=== PATIENT | female | born 1965 | race Asian ===

== ENCOUNTER 2017-05-19 10:58 | Outpatient (CLI) | payer OTHER ==
[~2017-05-19 10:58] MED LIST: RISP1TAB PO; SERT100T PO; TRAZ100T OR
== END 2017-05-19 19:23 | disposition home or self-care (01) ==
LOC: RAD 10:58
DX: R13.11 Dysphagia, oral phase (principal)

== ENCOUNTER 2017-12-06 08:48 | Outpatient (CLI) | payer OTHER | END 2017-12-06 21:42 | disposition home or self-care (01) | LOC: MAMMO 08:48 | DX: Z12.31 Encounter for screening mammogram for malignant neoplasm of breast (principal) ==

== ENCOUNTER 2018-01-17 08:53 | Outpatient (CLI) | payer OTHER | END 2018-01-17 22:34 | disposition home or self-care (01) | LOC: LABW 08:53 | DX: K64.0 First degree hemorrhoids (principal) | CPT/HCPCS: 82272 ==

== ENCOUNTER 2019-01-24 16:00 | Outpatient (CLI) | payer OTHER | END 2019-01-24 23:38 | disposition home or self-care (01) | LOC: LABW 16:00 | DX: K64.0 First degree hemorrhoids (principal) | CPT/HCPCS: 82272 ==

== ENCOUNTER 2019-05-13 08:06 | Day surgery (SDC) | payer OTHER ==
[2019-05-13 08:54] LABS: PLATELET COUNT 269 K/uL (152-353)
== END 2019-05-13 13:58 | disposition home or self-care (01) ==
LOC: OR 08:06
PROVIDERS: Student in an Organized Health Care Education/Training Program
PROC: 0HB6XZZ Excision of Back Skin, External Approach (ICD-10-PCS; principal; 2019-05-13)
PROC: 0HB5XZZ Excision of Chest Skin, External Approach (ICD-10-PCS; 2019-05-13)
DX: L90.5 Scar conditions and fibrosis of skin (principal); L91.0 Hypertrophic scar; I10 Essential (primary) hypertension; L92.8 Other granulomatous disorders of the skin and subcutaneous tissue
CPT/HCPCS: 80053; 85027; J0132; J0330; J0690; J1100; J2001; J2250; J2405; J2704; J2710; J2765; J3010; J3301; J3490

== ENCOUNTER 2019-08-19 22:40 | Emergency (ER) | payer OTHER ==
[~2019-08-19] VITALS: Ht 160 cm; Wt 90.7 kg
[2019-08-19 23:22] LABS: PLATELET COUNT 282 K/uL (152-353)
[2019-08-19 23:34] LABS: POTASSIUM 4.8 mmol/L (3.6-5.2); SODIUM 136 mmol/L (136-145)
[2019-08-19 23:55] LABS: PARTIAL THROMBOPLASTIN TIME 27.2 SECONDS (24.5-33.6)
[2019-08-20 00:25] VITALS: BP 149/78; TEMP 98.5
== END 2019-08-20 00:30 | disposition home or self-care (01) ==
LOC: ED 22:40
PROVIDERS: Hospitalist
DX: J45.901 Unspecified asthma with (acute) exacerbation (principal); J40 Bronchitis, not specified as acute or chronic
CPT/HCPCS: 36415; 80053; 82550; 82553; 83880; 84484; 85027; 85610; 85730; 93005; 94664; 96374; 99284; J2930

== ENCOUNTER 2020-09-09 09:25 | Outpatient (CLI) | payer OTHER | END 2020-09-09 19:52 | disposition home or self-care (01) | LOC: INF 09:25 | PROVIDERS: ATTEND Internal Medicine | DX: Z23 Encounter for immunization (principal) | CPT/HCPCS: 96372 ==

== ENCOUNTER 2020-09-29 14:44 | Outpatient (CLI) | payer OTHER | END 2020-09-29 21:33 | disposition home or self-care (01) | LOC: INF 14:44 | PROVIDERS: ATTEND Internal Medicine | DX: Z23 Encounter for immunization (principal) | CPT/HCPCS: 96372 ==

== ENCOUNTER 2020-10-29 03:20 | Emergency (ER) | payer OTHER ==
[~2020-10-29] VITALS: Ht 160 cm; Wt 90.7 kg
[2020-10-29 04:54] LABS: PLATELET COUNT 361 K/uL (152-353)
[2020-10-29 07:23] LABS: POTASSIUM 2.4 mmol/L (3.6-5.2)
[2020-10-29 08:35] VITALS: BP 145/88; TEMP 98.2
== END 2020-10-29 08:38 | disposition home or self-care (01) ==
LOC: ED 03:20
PROVIDERS: Family Medicine
DX: K21.9 Gastro-esophageal reflux disease without esophagitis (principal); E86.0 Dehydration; R10.13 Epigastric pain; Z03.818 Encounter for observation for suspected exposure to other biological agents ruled out
CPT/HCPCS: 36415; 80053; 81000; 82150; 83690; 85007; 85027; 87086; 87088; 87635; 96360; 96361; 96374; 99284; J2405; U0003

== ENCOUNTER 2020-11-01 15:37 | Inpatient (IN) | payer OTHER ==
[~2020-11-01] VITALS: Ht 157.5 cm; Wt 97.2 kg
[2020-11-01] VITALS (10 sets, daily range): BP systolic 62–94; BP diastolic 27–53; TEMP 97.6
[2020-11-01] MEDS ORDERED: LISITAB PO (15:56)
[2020-11-01] MEDS ORDERED: HYDROCHLOROT12.5 M1 PO (16:02)
[2020-11-01] MEDS ORDERED: DITROPAN XL10 MG PO (16:04)
[2020-11-01] MEDS ORDERED: POT CHLORIDE10 MEQ PO (16:04)
[2020-11-01] MEDS ORDERED: CLARITIN10 M1 PO (16:04)
[2020-11-01] MEDS ORDERED: LEVO0.1224 PO (16:05)
[2020-11-01 16:31] LABS: PLATELET COUNT 345 K/uL (152-353)
[2020-11-01 16:53] LABS: POTASSIUM 2.2 mmol/L (3.6-5.2)
[2020-11-02 00:11] VITALS: BP 82/38; TEMP 97.6
[2020-11-02] MEDS ORDERED: OMEPRAZOLE40 MG PO (01:47)
[2020-11-02 04:00] VITALS: BP 73/34; TEMP 97.5
[2020-11-02 05:06] VITALS: BP 76/40; TEMP 97.6; Ht 157.5 cm; Wt 97.2 kg
[2020-11-02 07:02] LABS: PLATELET COUNT 234 K/uL (152-353)
[2020-11-02 08:00] VITALS: BP 76/41; TEMP 97.7
[2020-11-02 08:19] LABS: POTASSIUM 2.8 mmol/L (3.6-5.2)
[2020-11-02] MEDS ORDERED: FLUTMIS14 INH (11:37)
[2020-11-02] MEDS ORDERED: ONDA4TAB3 PO (11:38)
== END 2020-11-02 16:40 | disposition short-term general hospital (02) | DRG 683 ==
LOC: ED 15:38 → MED/SURG 17:12
PROVIDERS: ADMIT Hospitalist; ATTEND Internal Medicine
DX: N17.8 Other acute kidney failure (principal); E87.1 Hypo-osmolality and hyponatremia; E86.0 Dehydration; I10 Essential (primary) hypertension; E03.8 Other specified hypothyroidism; E87.6 Hypokalemia; R19.7 Diarrhea, unspecified; I95.89 Other hypotension; K21.9 Gastro-esophageal reflux disease without esophagitis
CPT/HCPCS: 36415; 51702; 80053; 80320; 81000; 82150; 82272; 83690; 83735; 85007; 85027; 87015; 87045; 87088; 87324; 87328; 87329; 87449; 87635; 87899; 93005; 94664; 94760; 96360; 96361; 96365; 96366; 96375; 99284; J1650; J1956; J2405; J3490; U0003

== ENCOUNTER 2020-11-17 11:22 | Outpatient (CLI) | payer OTHER ==
[~2020-11-17 11:22] MED LIST changes: +CLARITIN10 M1 PO; +DITROPAN XL10 MG PO; +FLUTMIS14 INH; +HYDROCHLOROT12.5 M1 PO; +LEVO0.1224 PO; +LISITAB PO; +OMEPRAZOLE40 MG PO; +ONDA4TAB3 PO; +POT CHLORIDE10 MEQ PO
[2020-11-17 11:53] LABS: PLATELET COUNT 404 K/uL (152-353)
[2020-11-17 12:07] LABS: POTASSIUM 3.5 mmol/L (3.6-5.2)
== END 2020-11-17 19:35 | disposition home or self-care (01) ==
LOC: LAB 11:22
PROVIDERS: ATTEND Nurse Practitioner Family
DX: N19 Unspecified kidney failure (principal); E03.8 Other specified hypothyroidism; E11.9 Type 2 diabetes mellitus without complications; I10 Essential (primary) hypertension
CPT/HCPCS: 80053; 83036; 83735; 84436; 84443; 85027

== ENCOUNTER 2021-03-22 16:09 | Outpatient (CLI) | payer OTHER ==
[2021-03-22 16:52] LABS: PLATELET COUNT 318 K/uL (152-353)
[2021-03-22 17:35] LABS: POTASSIUM 3.9 mmol/L (3.6-5.2)
== END 2021-03-22 20:16 | disposition home or self-care (01) ==
LOC: LABW 16:09
PROVIDERS: ATTEND Student in an Organized Health Care Education/Training Program
DX: N17.9 Acute kidney failure, unspecified (principal); I10 Essential (primary) hypertension; E87.1 Hypo-osmolality and hyponatremia; R31.29 Other microscopic hematuria; R82.81 Pyuria; R80.8 Other proteinuria
CPT/HCPCS: 36415; 80053; 81000; 82306; 82570; 83735; 83970; 84155; 85027

== ENCOUNTER 2021-08-02 09:02 | Outpatient (CLI) | payer OTHER | END 2021-08-02 19:01 | disposition home or self-care (01) | LOC: US 09:02 | PROVIDERS: ATTEND Internal Medicine | DX: E03.8 Other specified hypothyroidism (principal) ==

== ENCOUNTER 2021-09-29 14:33 | Outpatient (CLI) | payer OTHER | END 2021-09-29 19:01 | disposition home or self-care (01) | LOC: RESP 14:33 | PROVIDERS: ATTEND Internal Medicine Cardiovascular Disease | DX: I10 Essential (primary) hypertension (principal) ==

== ENCOUNTER 2021-10-27 10:31 | Outpatient (CLI) | payer OTHER | END 2021-10-27 19:19 | disposition home or self-care (01) | LOC: MAMMO 10:31 | PROVIDERS: ATTEND Internal Medicine | DX: Z12.31 Encounter for screening mammogram for malignant neoplasm of breast (principal) ==

== ENCOUNTER 2021-11-10 11:38 | Outpatient (CLI) | payer OTHER | END 2021-11-10 18:53 | disposition home or self-care (01) | LOC: LABW 11:38 | PROVIDERS: ATTEND Internal Medicine Cardiovascular Disease | DX: Z79.899 Other long term (current) drug therapy (principal); R06.02 Shortness of breath | CPT/HCPCS: 36415; 83880 ==

== ENCOUNTER 2022-02-14 08:10 | Outpatient (CLI) | payer OTHER ==
[2022-02-14 08:57] LABS: POTASSIUM 3.6 mmol/L (3.6-5.2)
== END 2022-02-14 19:29 | disposition home or self-care (01) ==
LOC: LABW 08:10
PROVIDERS: ATTEND Student in an Organized Health Care Education/Training Program
DX: N17.9 Acute kidney failure, unspecified (principal); I10 Essential (primary) hypertension; E87.1 Hypo-osmolality and hyponatremia; R31.29 Other microscopic hematuria; R82.81 Pyuria; R80.8 Other proteinuria; E55.9 Vitamin D deficiency, unspecified; E79.0 Hyperuricemia without signs of inflammatory arthritis and tophaceous disease
CPT/HCPCS: 36415; 80053; 81002; 82306; 82570; 83036; 83735; 83970; 84100; 84156; 84550; 85018

== ENCOUNTER 2022-08-01 11:02 | Outpatient (CLI) | payer OTHER | END 2022-08-01 19:05 | disposition home or self-care (01) | LOC: RAD 11:02 | PROVIDERS: ATTEND Internal Medicine | DX: M54.16 Radiculopathy, lumbar region (principal) ==

== ENCOUNTER 2022-08-17 08:48 | Outpatient (CLI) | payer OTHER ==
[2022-08-17 09:09] LABS: PLATELET COUNT 276 K/uL (152-353)
[2022-08-17 09:29] LABS: POTASSIUM 4.1 mmol/L (3.6-5.2)
== END 2022-08-17 18:55 | disposition home or self-care (01) ==
LOC: LABW 08:48
PROVIDERS: ATTEND Student in an Organized Health Care Education/Training Program
DX: N17.9 Acute kidney failure, unspecified (principal); I10 Essential (primary) hypertension; E87.1 Hypo-osmolality and hyponatremia; R31.29 Other microscopic hematuria; R82.81 Pyuria; R80.8 Other proteinuria; E55.9 Vitamin D deficiency, unspecified; E79.0 Hyperuricemia without signs of inflammatory arthritis and tophaceous disease; N25.81 Secondary hyperparathyroidism of renal origin
CPT/HCPCS: 36415; 80053; 81002; 82306; 82570; 83735; 83970; 84100; 84156; 84550; 85027

== ENCOUNTER 2022-10-25 09:38 | Outpatient (CLI) | payer OTHER | END 2022-10-25 18:58 | disposition home or self-care (01) | LOC: MRI 09:38 | PROVIDERS: ATTEND Physician Assistant | DX: M54.59 Other low back pain (principal) ==